=== PATIENT | female | born 1980 | race Caucasian/White ===

== ENCOUNTER 2017-01-05 19:04 | Emergency (ER) | payer OTHER ==
[~2017-01-05] VITALS: Ht 172.7 cm; Wt 79.8 kg
[2017-01-05] MEDS ORDERED: PREDNISONE10 MG PO (19:37)
[2017-01-05] MEDS ORDERED: KLONOPIN1 MG PO (19:38)
[2017-01-05] MEDS ORDERED: TRILEPTAL600 MG PO (19:38)
[2017-01-05] MEDS ORDERED: LAMICTAL100 MG PO (19:38)
== END 2017-01-05 21:35 | disposition home or self-care (01) ==
LOC: SED 19:04
DX: T43.595A Adverse effect of other antipsychotics and neuroleptics, initial encounter (principal); G40.909 Epilepsy, unspecified, not intractable, without status epilepticus; F41.9 Anxiety disorder, unspecified; F32.9 Major depressive disorder, single episode, unspecified; F17.210 Nicotine dependence, cigarettes, uncomplicated; Z98.51 Tubal ligation status
CPT/HCPCS: 99283